=== PATIENT | male | born 1995 | race Caucasian/White ===

== ENCOUNTER → 2022-07-03 12:16 | Outpatient (CLI) | payer OTHER, SELFPAY ==
--- NOTE | 2022-07-03 | DI.CT.S_ITS ---
PROCEDURE: CT SINUS SCREEN WO CON INDICATIONS: Chronic pansinusitis TECHNIQUE: Noncontrast 3.0 mm axial images acquired from the frontal sinuses to the mid-sella, with coronal and sagittal reformats. For radiation dose reduction, the following was used: automated exposure control, adjustment of mA and/or kV according to patient size. COMPARISON: None. FINDINGS: Image quality: Limited by motion artifact Maxillary Sinuses: No bony remodeling or destruction. Sinuses are clear. Ethmoid Air Cells: No bony remodeling or destruction. Sinuses are clear. Sphenoid Sinuses: No bony remodeling or destruction. Sinuses are clear. Frontal Sinuses: No bony remodeling or destruction. Sinuses are clear. Ostiomeatal Complexes: Ostiomeatal complexes are patent. No Naheed cells. Miscellaneous: Osseous nasal septum bowing to the right. Cartilaginous deviation to the left. IMPRESSION: Nasal septal deviation to the left. Approved by: Gerson Billy M.D. on 07/03/2022 at 15:43
== END ==
PROVIDERS: PCP Family Medicine; Referring Provider Otolaryngology; Visit Provider Otolaryngology
DX: J32.4 Chronic pansinusitis (principal); J34.2 Deviated nasal septum
CPT/HCPCS: 70486

== ENCOUNTER → 2023-05-13 07:34 | Outpatient (CLI) | payer OTHER, SELFPAY ==
[2023-05-13 08:21] LABS: Influenza A - CEPHEID Flu A NEGATIVE (NEGATIVE); Influenza B - CEPHEID Flu B NEGATIVE (NEGATIVE); Respiratory Syncytial Virus Negative (Negative)
[2023-05-13 08:22] LABS: COVID-19 CEPHEID 4-PLEX PCR Negative (Negative)
== END ==
PROVIDERS: PCP Family Medicine; Visit Provider Student in an Organized Health Care Education/Training Program
DX: J02.9 Acute pharyngitis, unspecified (principal)
CPT/HCPCS: 0241U; 87070

== ENCOUNTER → 2023-09-27 08:32 | Outpatient (ROUT) | payer OTHER, SELFPAY ==
[2023-09-27 09:21] LABS: Add Manual Diff / Slide Review NO; Basophils Absolute Auto 0 /uL (0-100); Basophils Percent Auto 0.3 % (0-2); Eosinophils Absolute Auto 0 /uL (0-450); Eosinophils Percent Auto 0.2 % (2-4); Hematocrit 43.1 % (41-53); Hemoglobin 15.3 g/dL (13.5-17.5); Lymphocytes Absolute Auto 1000 /uL (1100-4500); Lymphocytes Percent Auto 9.4 % (25-40); Mean Corpuscular HGB Conc 35.5 % (30-36); Mean Corpuscular Hemoglobin 30.6 PG (26-34); Mean Corpuscular Volume 86.1 fL (80-100); Monocytes Absolute Auto 1000 /uL (0-900); Monocytes Percent Auto 8.7 % (3-14); Neutrophils Absolute Auto 9000 /uL (1500-7000); Neutrophils Percent Auto 81.4 % (50-75); Platelet Count 199 X10^3/uL (150-400); Red Cell Distribution Width 12.5 % (11.6-14.8)
[2023-09-27 10:45] LABS: Influenza A - CEPHEID Flu A POSITIVE (NEGATIVE); Influenza B - CEPHEID Flu B POSITIVE (NEGATIVE); Respiratory Syncytial Virus Negative (Negative)
[2023-09-27 12:19] LABS: COVID-19 CEPHEID 4-PLEX PCR Negative (Negative)
== END ==
PROVIDERS: Registered Nurse; PCP Family Medicine; Visit Provider Family Medicine
DX: R23.3 Spontaneous ecchymoses (principal); R05.1 Acute cough
CPT/HCPCS: 0241U; 85025

== ENCOUNTER → 2024-08-06 15:34 | Outpatient (CLI) | payer OTHER, SELFPAY | PROVIDERS: PCP Family Medicine; Visit Provider Physician Assistant Surgical | DX: J02.9 Acute pharyngitis, unspecified (principal) | CPT/HCPCS: 87070 ==

== ENCOUNTER → 2024-08-25 13:24 | Outpatient (CLI) | payer OTHER, SELFPAY | PROVIDERS: PCP Family Medicine; Visit Provider Physician Assistant Medical | DX: J02.9 Acute pharyngitis, unspecified (principal) | CPT/HCPCS: 87070 ==

== ENCOUNTER → 2025-02-23 15:52 | Outpatient (CLI) | payer OTHER, SELFPAY ==
--- NOTE | 2025-02-24 11:56 | DIET.OUTPTC ---
Dietary Outpatient Consult Consult Date:02/23/25 Assessment:? 29 y M referred to dietitian for class 1 obesity due to excess calories without serious comorbidity with BMI 33.0-33.9 in adult Pt wanting to work towards making some healthy lifestyle changes to feel better. Reports weight gain since start of anxiety/depression medication and family hx of obesity and DM. Barriers include having a toddler and partner. Would like more ideas for quick dinner/snack meals. Vegetarian. Reports gravitates towards CHO based foods. Drinks excess water to help with anxiety- 7-8 30 oz water bottles daily for around 7 L daily. GI symptoms: Denies D/C, BM 2x/day. Denies V, sometimes nausea with excess water intake Tracking food in [employer] samia. Kcals set at 2500 and macros: 50%CHO, 30%fat, 20% protein Diet Recall: B-flavored yoruba yogurt, 2 sl toast whole wheat, coffee with whole milk (whole milk for the kids) 10am-apple/banana 11am-kind bar 1-2pm- hummus and david peppers D-stirfry, mac and cheese, omelets, varies-sometimes with toddler struggles with having set meal, will have more snack like options Fluids:7-8 30 oz water bottles daily for around 7 L daily. Ht:?6 ft 1 in? Wt:?245 lb per pt? 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 Excessive fluid intake r/t habit to help anxiety symptoms aeb pt drinking 7 L+ per day, hyponatremia Altered nutrition related lab values (lipid panel) r/t food and nutrition related knowledge deficit aeb TC 251, TG 204, LDL 162 Interventions:? Discussed and provided appropriate resources on the following: -Appropriate fluid intake of 3.5-4 L per day to avoid nausea symptoms and hyponatremia (35mL/kg) -My plate method for balanced meals with pairing of macros and portioned carbs -Saturated fats and soluble fiber: amount, importance r/t to labs, label reading - provided handout detailing foods with soluble fiber and amount -Brainstorming meal ideas -Physical activity Goals: -Portion sizing carb at dinner, 45-60 g carb (ex- 1 cup pasta) -Adding fiber and protein choice when having snacks/pasta for dinner, provided handout of various paring ideas categorized in protein/fiber/fat/grain sections -Label reading for saturated fats and comparing products -Adding in yoga or calisthenics (pt's preferred activity during summer) in 2x/wk Monitoring/Evaluations:? F/u in 3 months, unable to f/u sooner d/t having a baby Electronically Signed by: Marsha Pace Clinical Dietitian [address] [id number]
== END ==
PROVIDERS: PCP Family Medicine
DX: E66.811 Obesity, class 1 (principal); Z68.33 Body mass index [BMI] 33.0-33.9, adult; F41.9 Anxiety disorder, unspecified; F32.A Depression, unspecified; Z71.3 Dietary counseling and surveillance; Z83.3 Family history of diabetes mellitus
CPT/HCPCS: 97802